=== PATIENT | female | born 1985 | race Caucasian/White ===

== ENCOUNTER 2016-07-16 19:23 | Emergency (ER) | payer SELFPAY ==
[2016-07-16] MEDS ORDERED: 0.9 % SODIUM CHLORIDE 1,000 ML IV ONE (19:26)
[2016-07-16 20:13] LABS: BASOPHILS % 0.5 (0.0-1.5); EOSINOPHILS % 1.2 % (0.0-6.8); LYMPHOCYTES # 3.6 # k/uL (0.6-4.0); MEAN CORPUSCULAR HEMOGLOBIN 28.7 pg (28.0-34.0); MONOCYTES # 0.5 # k/uL (0.0-0.9); MONOCYTES % 5.2 % (0.0-11.0)
[2016-07-16 20:28] LABS: eGFR (African) > 60; eGFR (Non-African) > 60
--- NOTE | 2016-07-16 20:32 | ED Physician Documentation ---
Abdominal Pain - HISTORIAN Historian: patient - HPI Stated Complaint: RLQ pain Chief Complaint: Abdominal Pain Onset: hours Duration: constant Timing: worse Context: denies: out of country travel, bad food, recent trauma Severity: moderate Quality: pain, cramping Associated Symptoms: nausea, back pain. denies: fever, chills, vomiting, coffee ground emesis, bloody emesis, diarrhea, bloody stools, loss of appetite Exacerbated by: nothing Relieved by: nothing Further Comments: yes (30 year old female patient presents with RLQ pain, patient states her pain started at 1500 and has become worse, with nausea and constipation) - ROS CONST: recent illness (hypothyroid, saw PCP last week) GI/: constipation CVS/RESP: none EYES/ENT: none MS/SKIN/LYMPH: none NEURO/PSYCH: headache. denies: dizziness, light-headedness - SOCIAL HX Smoking History: non-smoker - FAMILY HX Family History: denies: none - PAST HX Past History: none Ischemic Bowel Risk Factors: none Other History: diabetes Type 2, other (hypothyroid, PCOS) Surgeries/Procedures: cholecystectomy, BLT, other (Exploratory lap) Home Medications: Ambulatory Orders Medication Instructions Recorded Omeprazole 20 mg PO HS #30 capsule. 07/16/16 Promethazine HCl [Phenergan] 12.5 mg PO Q6H PRN #30 tablet 07/16/16 Allergies/Adverse Reactions: Allergies Allergy/AdvReac Type Severity Reaction Status Date / Time levothyroxine sodium Allergy Verified 07/16/16 20:03 - VITAL SIGNS Vital Signs: Vital Signs Temp Pulse Resp BP Pulse Ox 99.8 F H 87 16 113/78 98 07/16/16 20:00 07/16/16 20:00 07/16/16 20:00 07/16/16 20:00 07/16/16 20:00 - REVIEWED ASSESSMENTS Nursing Assessment Reviewed: Yes Vitals Reviewed: Yes Progress - Progress Progress: Extended wait time due to critical patient in Er. Patient medicated with zofran and NS while in Er, toradol given for pain. Reviewed lab and CT results with patient. Reviewed discharge instructions. No prescription insurance. Coupon for omeprazole provided. Education on bland diet. ED Results Lab/Radiology - Lab Results Lab Results: Lab Results 07/16/16 07/16/16 20:08 20:08 WBC 9.40 K/ul K/ul (4.00-12.00) RBC 4.86 M/ul M/ul (3.90-5.20) Hgb 13.9 g/dL g/dL (12.0-16.0) Hct 41.7 % % (34.5-46.5) MCV 85.8 fl fl (80.0-100.0) MCH 28.7 pg pg (28.0-34.0) MCHC 33.4 g/dL g/dL (30.0-36.0) RDW 13.7 % % (11.3-14.3) Plt Count 272 K/mm3 K/mm3 (130-400) Neut % (Auto) 53.3 % % (39.0-79.0) Lymph % (Auto) 38.1 % % (16.0-50.0) [place] % (Auto) 5.2 % % (0.0-11.0) Eos % (Auto) 1.2 % % (0.0-6.8) Baso % (Auto) 0.5 (0.0-1.5) Neut # 5.0 # k/uL # k/uL (1.4-7.7) Lymph # 3.6 # k/uL # k/uL (0.6-4.0) [place] # 0.5 # k/uL # k/uL (0.0-0.9) Eos # 0.1 # k/uL # k/uL (0.0-0.6) Baso # 0.0 # k/uL # k/uL (0.0-0.5) Reactive Lymphs % 1.6 % % (0.0-5.0) Reactive Lymphs # 0.2 # k/uL # k/uL (0.0-0.8) Sodium 140 mmol/L mmol/L (136-145) Potassium 3.2 mmol/L L mmol/L (3.5-5.0) Chloride 103 mmol/L mmol/L (98-110) Carbon Dioxide 29 mmol/L mmol/L (20-32) BUN 9 mg/dL L mg/dL (10-26) Creatinine 0.5 mg/dL mg/dL (0.4-1.5) Estimated Creat Clear 299 Est GFR ( Amer) > 60 (60 - ) Est GFR (Non-Af Amer) > 60 (60 - ) Glucose 108 mg/dL H mg/dL (70-99) Calcium 10.4 mg/dL mg/dL (8.5-10.5) Total Bilirubin 0.3 mg/dL mg/dL (0.2-1.2) AST 27 U/L U/L (0-41) ALT 38 U/L U/L (0-45) Alkaline Phosphatase 92 U/L U/L (46-116) Total Protein 7.6 g/dL g/dL (6.0-8.5) Albumin 5.2 g/dL g/dL (3.0-5.5) - Radiology Radiology Impressions: CT abdomen and pelvis with intravenous contrast History: Right lower quadrant pain Technique: Images through the abdomen and pelvis were obtained following intravenous contrast administration. Findings: The lung bases are clear. The patient is status post cholecystectomy. The liver, spleen, pancreas, kidneys and adrenal glands are normal. There is no hydronephrosis, hydroureter, free intraperitoneal air, fluid or adenopathy. There is no bowel obstruction. The appendix is normal. The uterus is grossly normal. The aorta enhances normally. Since 30 March 2016, right ovarian cyst is no longer present. Impression: Normal. Electronically signed on Jul 16, 2016 9:45:36 PM CDT by: Marino Desouza - Orders Orders: ED Orders Category Date Time Status Place Saline Lock/IV NOW Care 07/16/16 19:[address] ABD & PELVIS W/ CON Stat Exams 07/16/16 Completed CBC/PLATELET/DIFF Stat Lab 07/16/16 20:08 Completed CMP Stat Lab 07/16/16 20:08 Completed UA W/MICRO IF INDICATED Stat Lab 07/16/16 20:48 Ordered URINE HCG Stat Lab 07/16/16 20:40 Ordered 0.9 % Sodium Chloride [Normal Saline] 1,000 ml Med 07/16/16 19:26 Discontinued IV NOW Ketorolac Tromethamine [Toradol] Med 07/16/16 22:11 Discontinued 30 mg .ROUTE .STK-MED ONE Ketorolac Tromethamine [Toradol] Med 07/16/16 22:11 Discontinued 30 mg IVP NOW ONE Ondansetron HCl Rapdis [Zofran Odt] Med 07/16/16 21:56 Discontinued 4 mg PO NOW ONE Ondansetron HCl/Pf [Zofran 4 mg/2 ml] Med 07/16/16 20:57 Discontinued 4 mg IVP NOW ONE Abdominal Pain Physical Exam - Physical Exam General Appearance: mild distress EENT: eye inspection normal, FELY RESPIRATORY: no resp distress, chest non-tender, breath sounds normal CVS: reg rate & rhythm, heart sounds normal, equal pulses, no murmur, no gallop , PMI nml, no JVD, no friction rub, 24 ABDOMEN: soft, no organomegaly, normal bowel sounds, no abdominal bruit, no distension SKIN: normal color, warm/dry, NR, INT, PAL, DR EXTREMITIES: non-tender, normal range of motion, no evidence of injury, no edema , J, CLINICAL DOCUMENTATION SPEC NEURO: oriented X3, CN's nml as tested, motor nml, sensation nml Vital Signs: Vital Signs Temp Pulse Resp BP Pulse Ox 99.8 F H 87 16 113/78 98 07/16/16 20:00 07/16/16 20:00 07/16/16 20:00 07/16/16 20:00 07/16/16 20:00 Discharge Clincal Impression: Nausea Abdominal pain Qualifiers: Abdominal location: generalized Qualified Code(s): R10.84 - Generalized abdominal pain Prescriptions: Omeprazole 20 mg PO HS #30 capsule.dr Chavezethazine HCl [Phenergan] 12.5 mg PO Q6H PRN #30 tablet PRN Reason: Nausea / Vomiting Referrals: Demetria Gongora MD [Primary Care Provider] - 2 Days Additional Instructions: [place] diet - no spicy, fried or high fatty foods. Zofran prescription was sent to the pharmacy and can be used as needed Omeprazole prescription was sent to the pharmacy, start it before bed Follow up next week with Dr Gongora Home Medications: Ambulatory Orders Omeprazole 20 mg PO HS #30 capsule. 07/16/16 Promethazine HCl [Phenergan] 12.5 mg PO Q6H PRN #30 tablet 07/16/16 Condition: Stable Disposition: 01 HOME, SELF-CARE Decision to Admit: NO Decision Time: 21:52
[2016-07-16] MEDS ORDERED: ONDANSETRON HCL/PF 4 MG/ 2ML VIAL IVP ONE (20:57)
[2016-07-16] MEDS ORDERED: ONDANSETRON HCL 4 MG TAB.RAPDIS PO ONE (21:56)
[2016-07-16] MEDS ORDERED: KETOROLAC TROMETHAMINE 30 MG/1ML VIAL IVP ONE (22:11)
[2016-07-16] MEDS ORDERED: KETOROLAC TROMETHAMINE 30 MG/1ML VIAL ONE (22:11)
--- NOTE | 2016-07-16 22:42 | Diagnostic Imaging Report ---
INDU CHAMPAGNE (TIMOTHY) - ER~ [facility] [address] [facility] [address] [place] [address]. [id number] ~ ~ ~ ~ Report Submission Date: Jul 16, 2016 9:45:36 PM CDT Patient ~ Study Name: RONEN MUNOZ ~ Date: Jul 16, 2016 9:16:14 PM CDT ~ Modality Type: CT\SR Gender: F ~ Description: CT ABD & PELVIS W/ CON : 81 ~ Institution: [facility] Physician: INDU CHAMPAGNE) - ER ~ ~ ~ ~ CT abdomen and pelvis with intravenous contrast History: Right lower quadrant pain Technique: Images through the abdomen and pelvis were obtained following intravenous contrast administration. Findings: The lung bases are clear. The patient is status post cholecystectomy. The liver, spleen, pancreas, kidneys and adrenal glands are normal. There is no hydronephrosis, hydroureter, free intraperitoneal air, fluid or adenopathy. There is no bowel obstruction. The appendix is normal. The uterus is grossly normal. The aorta enhances normally. Since 30 March 2016, right ovarian cyst is no longer present. Impression: Normal. ~ Electronically signed on Jul 16, 2016 9:45:36 PM CDT by: Marino RON
[2016-07-17 02:23] VITALS: BP 117/68
[2016-07-17 05:47] LABS: APPEARANCE,URINE CLEAR (CLEAR); COLOR,URINE YELLOW (YELLOW); OCCULT BLOOD,URINE NEGATIVE (NEGATIVE); PH URINE 5.5 (5.0 - 8.0); UROBILINOGEN URINE 0.2 Eu (0.2-1.0)
== END 2016-07-16 22:14 | disposition home or self-care (01) ==
LOC: ED 19:23
DX: R10.84 Generalized abdominal pain (principal); R11.2 Nausea with vomiting, unspecified
CPT/HCPCS: 74177; 80053; 81002; 81025; 85025; 96361; 96374; 96375; 99283; 99284; J1885; J2405; J7030; Q9966; S1016

== ENCOUNTER 2016-09-28 20:52 | Emergency (ER) | payer SELFPAY ==
[2016-09-28] MEDS ORDERED: TRIAMCINOLONE CREAM 0.1% 15GM TUBE TP ONE (21:15)
--- NOTE | 2016-09-28 21:21 | ED Physician Documentation ---
Skin Rash - HISTORIAN Historian: patient - HPI Stated Complaint: Rash to Left Hip Chief Complaint: Skin Rash Additional Information: Pt is a 30 yo female that presents with left hip rash onset last night. Pt states she went hiking yesterday with her son and began to notice the area itching last night when she went to bed. She awoke this AM with increased itching and pain to the area and a slight macular, non-pruritic rash on her upper extremities. She denies fever/chills and N/V. Denies having an tick bites but she thinks she was bit by something. Denies difficulty breathing. Onset: hours Timing: still present Duration: persistent since Location: trunk Quality: itchy, painful - ROS CONST: none. denies: fever, chills CVS/RESP: denies: none, shortness of breath EYES/ENT: none GI/: none MS/SKIN/LYMPH: rash NEURO/PSYCH: none - PAST HX Past History: other (hyperthyroidism) Other History: none Allergies/Adverse Reactions: Allergies Allergy/AdvReac Type Severity Reaction Status Date / Time levothyroxine sodium Allergy Verified 09/28/16 21:07 - SOCIAL HX Smoking History: non-smoker - FAMILY HX Family History: none - VITAL SIGNS Vital Signs: Vital Signs Temp Pulse Resp BP Pulse Ox 97.9 F 96 H 18 138/84 96 09/28/16 20:55 09/28/16 20:55 09/28/16 20:55 09/28/16 20:55 09/28/16 20:55 - REVIEWED ASSESSMENTS Nursing Assessment Reviewed: Yes Vitals Reviewed: Yes Progress - Progress Progress: Pt does not appear toxic. The area of concern does not appear infected at this time, just looks like a local inflammatory reaction. I will rx the patient steroid cream. We discussed that should her symptoms worsen over the next 24-48 hours that she should contact Dr. Gongora's office and an antibiotic would be indicated at that time. She voices understanding and is agreeable. Skin Rash Physical Exam - EXAM General Appearance: no acute distress Skin: warm,dry, other (to left ASIS region. Area is TTP. No induration or fluctuance noted. Area of erythema is roughly 6 cm in diameter. No drainage noted. There is a fine macular rash to bilateral upper arms.) Character: asymmetric, macular Symptoms: tenderness. No: induration, weeping Extremities: non-tender, nml ROM EENT: eyes nml inspection Neck: trachea midline, no swelling Respiratory: no resp distress, breath sounds normal CVS: reg. rate & rhythm, heart sounds nml Abdomen: non-tender Neuro/Psych: oriented x3 Discharge Clincal Impression: Insect bite Qualifiers: Encounter type: initial encounter Qualified Code(s): W57.XXXA - Bitten or stung by nonvenomous insect and other nonvenomous arthropods, initial encounter Referrals: Demetria Gongora MD [Primary Care Provider] - 2 Days Additional Instructions: Use steroid cream as directed. Contact Dr. Gongora's office if your rash worsens in the next 24-48hrs. Alternate Tylenol and Ibuprofen as needed for pain. Return to the ED should your symptoms worsen or not improve. Condition: Good Disposition: 01 HOME, SELF-CARE Decision to Admit: NO Decision Time: 21:20
[2016-09-28] MEDS ORDERED: TRIAMCINOLONE ACETONIDE 0.1% 80GM TUBE TP PRN (21:23)
[2016-09-28 21:26] VITALS: BP 121/76
== END 2016-09-28 21:25 | disposition home or self-care (01) ==
LOC: ED 20:52
DX: S70.262A Insect bite (nonvenomous), left hip, initial encounter (principal); W57.XXXA Bitten or stung by nonvenomous insect and other nonvenomous arthropods, initial encounter; Y93.9 Activity, unspecified; Y99.9 Unspecified external cause status
CPT/HCPCS: 99282; 99283

== ENCOUNTER 2016-11-19 09:32 | Outpatient (CLI) | payer SELFPAY | END 2016-11-19 09:33 | LOC: LAB 09:32 | PROVIDERS: ATTEND Family Medicine | DX: E03.9 Hypothyroidism, unspecified (principal) | CPT/HCPCS: 36415; 84443 ==

== ENCOUNTER 2017-08-08 10:11 | Outpatient (CLI) | payer OTHER | END 2017-08-08 10:12 | LOC: LAB 10:11 | PROVIDERS: ATTEND Family Medicine | DX: E03.9 Hypothyroidism, unspecified (principal); E28.2 Polycystic ovarian syndrome | CPT/HCPCS: 36415; 83036; 84443 ==

== ENCOUNTER 2017-08-29 17:55 | Emergency (ER) | payer OTHER ==
[2017-08-29] MEDS ORDERED: ONDANSETRON HCL/PF 4 MG/ 2ML VIAL IVP ONE (18:33)
[2017-08-29] MEDS ORDERED: 0.9 % SODIUM CHLORIDE 1,000 ML IV ONE (18:46)
--- NOTE | 2017-08-29 18:51 | ED Physician Documentation ---
Abdominal Pain - HISTORIAN Historian: patient - HPI Stated Complaint: abd pain Chief Complaint: Abdominal Pain Onset: hours Context: denies: out of country travel Quality: pain, cramping Associated Symptoms: nausea. denies: fever, vomiting, bloody stools - ROS CONST: no problems - SOCIAL HX Smoking History: non-smoker - FAMILY HX Family History: no significant history - PAST HX Past History: other (PCOS, hypothyroid, had NIDDM, but lost 60 pounds; last A1C 5.7.) Surgeries/Procedures: cholecystectomy, other (above) - REVIEWED ASSESSMENTS Nursing Assessment Reviewed: Yes Vitals Reviewed: Yes <OMID BEYER - Last Filed: 08/29/17 19:05> <Morales Oh - Last Filed: 08/31/17 13:09> - HPI Additonal Information: Nausea began this am and continues. Abdomen uncomfortable since this am and had become increasingly bloated. Had three bowel movements today which is atypical for her. They did not influence her pain which is now L>R. They were typical consistency for her. The second bowel movement is said to have been "dark, almost black." She has not otherwise felt the urge to pass gas nor has she belched. Feels like pains she had with gall bladder but on the left. She has not vomited or had fever. No meds or other treatment attempted. Walking sometimes helps and sometimes makes it worse. LNMP 10 days ago. No HX [place]. DX'ed with PCOS 3 years ago and had lap exploratory; symptoms have improved since. (OMID BEYER) - PAST HX Allergies/Adverse Reactions: Allergies Allergy/AdvReac Type Severity Reaction Status Date / Time levothyroxine sodium Allergy Verified 08/29/17 18:22 - VITAL SIGNS Vital Signs: Vital Signs Temp Pulse Resp BP Pulse Ox 98.1 F 79 16 132/67 98 08/29/17 20:32 08/29/17 20:32 08/29/17 20:32 08/29/17 20:32 08/29/17 20:32 Progress <OMID BEYER - Last Filed: 08/29/17 19:05> <Morales Oh - Last Filed: 08/31/17 13:09> - Progress Progress: 1904, care to Dr. Oh. (OMID BEYER) X-ray abdomen: Examination of the abdomen in supine and upright views demonstrates gas and stool in the colon. There is no obstruction or free air. Surgical clips are seen in the right upper quadrant from prior cholecystectomy. Psoas margins are well defined. There no unusual intra-abdominal calcifications. Impression: 1. Postoperative abdomen. 2. Otherwise negative study. Magnesiums Citrate: drink 1/2 bottle; if no bm after 6 hrs repeat. If sx unimproved f/u pcp or district wire chief re: PCOS. (Morales Oh) - Lab Results Lab Results: Lab Results 08/29/17 08/29/17 08/29/17 18:43 18:43 18:08 WBC 8.40 K/ul K/ul (4.00-12.00) RBC 5.18 M/ul M/ul (3.90-5.20) Hgb 14.8 g/dL g/dL (12.0-16.0) Hct 44.5 % % (34.5-46.5) MCV 85.9 fl fl (80.0-100.0) MCH 28.6 pg pg (28.0-34.0) MCHC 33.3 g/dL g/dL (30.0-36.0) RDW 13.3 % % (11.3-14.3) Plt Count 305 K/mm3 K/mm3 (130-400) Neut % (Auto) 46.5 % % (39.0-79.0) Lymph % (Auto) 44.1 % % (16.0-50.0) [place] % (Auto) 4.5 % % (0.0-11.0) Eos % (Auto) 1.8 % % (0.0-6.8) Baso % (Auto) 0.8 (0.0-1.5) Neut # (Auto) 3.9 # k/uL # k/uL (1.4-7.7) Lymph # (Auto) 3.7 # k/uL # k/uL (0.6-4.0) [place] # (Auto) 0.4 # k/uL # k/uL (0.0-0.9) Eos # (Auto) 0.2 # k/uL # k/uL (0.0-0.6) Baso # (Auto) 0.1 # k/uL # k/uL (0.0-0.5) Reactive Lymphs % 2.3 % % (0.0-5.0) Reactive Lymphs # 0.2 # k/uL # k/uL (0.0-0.8) Sodium 140 mmol/L mmol/L (136-145) Potassium 3.7 mmol/L mmol/L (3.5-5.1) Chloride 100 mmol/L mmol/L (98-107) Total Carbon Dioxide 25 mmol/L mmol/L (22-29) BUN 8 mg/dL mg/dL (6-20) Creatinine 0.50 mg/dL mg/dL (0.40-1.50) Estimated GFR mL/min >114 Glucose 101 mg/dL H mg/dL (70-99 Fasting) Calcium 10.4 mg/dL H mg/dL (8.6-10.2) Total Bilirubin <0.3 mg/dL mg/dL (<1.2) AST 15 U/L U/L (<32) ALT 15 U/L U/L (<34) Alkaline Phosphatase 87 U/L U/L (40-129) Total Protein 7.6 g/dL g/dL (6.0-8.5) Albumin 4.8 g/dL g/dL (3.5-5.2) Lipase 52 U/L U/L (13-60) Urine Color Yellow (YELLOW) Urine Appearance Clear (CLEAR) Urine pH 6.5 (5.0 - 8.0) Ur Specific [place] 1.010 (1.010-1.030) Urine Protein Negative mg/dL mg/dL (NEGATIVE) Urine Ketones Negative mg/dL mg/dL (NEGATIVE) Urine Occult Blood Negative (NEGATIVE) Urine Nitrite Negative (NEGATIVE) Urine Bilirubin Negative (NEGATIVE) Urine Urobilinogen 0.2 Eu Eu (0.2-1.0) Ur Leukocyte Esterase Negative (NEGATIVE) Urine Glucose Negative mg/dL mg/dL (NEGATIVE) Urine HCG, Qual Negative (NEGATIVE) - Orders Orders: ED Orders Category Date Time Status Place IV Lock 1T Care 08/29/17 18:32 Active ABDOMEN WITH PA CHEST [ABD SERIES PA CHEST] [RAD] Stat Exams 08/29/17 Completed CBC/PLATELET/DIFF Routine Lab 08/29/17 18:43 Completed UA MACRO DIP ONLY Stat Lab 08/29/17 18:08 Completed URINE HCG Stat Lab 08/29/17 18:08 Completed 0.9 % Sodium Chloride [Normal Saline] 1,000 ml Med 08/29/17 18:46 Discontinued IV .STK-MED 0.9 % Sodium Chloride [Normal Saline] 1,000 ml Med 08/29/17 19:00 Discontinued IV Q10H Ketorolac Tromethamine [Toradol] Med 08/29/17 19:17 Discontinued 30 mg IVP NOW ONE Magnesium Citrate [Citrate of Magnesia] Med 08/29/17 20:19 Discontinued 296 ml PO .STK-MED ONE Magnesium Citrate [Citrate of Magnesia] Med 08/29/17 20:19 Discontinued 296 ml PO NOW ONE Ondansetron HCl/Pf [Zofran 4 mg/2 ml] Med 08/29/17 18:33 Discontinued 4 mg IVP NOW ONE Abdominal Pain Physical Exam - Physical Exam General Appearance: alert, mild distress EENT: eye inspection normal, pharynx normal NECK: normal inspection, supple RESPIRATORY: no resp distress, breath sounds normal CVS: reg rate & rhythm, heart sounds normal, no murmur ABDOMEN: soft, normal bowel sounds, tenderness (slight, diffuse), distended ( not tense). No: psoas, obturator sign BACK: normal inspection, no CVA tenderness, other (no vertebral tenderness) SKIN: warm/dry, normal color EXTREMITIES: normal range of motion (gait and stance), no evidence of injury NEURO: CN's nml as tested, motor nml, sensation nml, cognition normal <OMID BEYER - Last Filed: 08/29/17 19:05> - Physical Exam Vital Signs: Vital Signs Temp Pulse Resp BP Pulse Ox 98.1 F 79 16 132/67 98 08/29/17 20:32 08/29/17 20:32 08/29/17 20:32 08/29/17 20:32 08/29/17 20:32 Discharge <OMID BEYER - Last Filed: 08/29/17 19:05> Decision to Admit: NO Decision Time: 20:18 <Morales Oh - Last Filed: 08/31/17 13:09> Clincal Impression: abdominal pain Referrals: Demetria Gongora MD [Primary Care Provider] - Condition: Stable Disposition: HOME, SELF-CARE
[2017-08-29 18:56] LABS: BASOPHILS % 0.8 (0.0-1.5); EOSINOPHILS % 1.8 % (0.0-6.8); MEAN CORPUSCULAR HEMOGLOBIN 28.6 pg (28.0-34.0); MEAN CORPUSCULAR VOLUME 85.9 fl (80.0-100.0); MONOCYTES % 4.5 % (0.0-11.0); NEUTROPHILS # 3.9 # k/uL (1.4-7.7)
[2017-08-29] MEDS ORDERED: 0.9 % SODIUM CHLORIDE 1,000 ML IV SCH (19:00)
[2017-08-29] MEDS ORDERED: KETOROLAC TROMETHAMINE 30 MG/1ML VIAL IVP ONE (19:17)
[2017-08-29] MEDS ORDERED: MAGNESIUM CITRATE 296 ML BOTTLE PO ONE ×2 (20:19)
[2017-08-29 20:21] LABS: LIPASE 52 U/L (13-60); TOTAL PROTEIN 7.6 g/dL (6.0-8.5)
[2017-08-29 20:34] VITALS: BP 132/67
--- NOTE | 2017-08-30 06:33 | Diagnostic Imaging Report ---
OMID BEYER [facility] [address] [facility] [address] [place] [address]. [id number] Report Submission Date: August 29, 2017 7:36:19 PM CDT Patient Study Name: RONEN SHAIKH Date: August 29, 2017 7:02:00 PM CDT Modality Type: DX Gender: F Description: ABDOMEN : 81 Institution: [facility] Physician: OMID BEYER Obstructive series with chest x-ray Clinical history: PAIN; BLOATING TODAY Findings: Examination of the chest in single upright view demonstrates the lungs to be clear. Cardiovascular and mediastinal silhouettes are within normal limits. Examination of the abdomen in supine and upright views demonstrates gas and stool in the colon. There is no obstruction or free air. Surgical clips are seen in the right upper quadrant from prior cholecystectomy. Psoas margins are well defined. There no unusual intra-abdominal calcifications. Impression: 1. Postoperative abdomen. 2. Otherwise negative study. Electronically signed on August 29, 2017 7:36:19 PM CDT by: Rohit RON
[2017-08-31 08:55] LABS: APPEARANCE,URINE CLEAR (CLEAR); COLOR,URINE YELLOW (YELLOW); OCCULT BLOOD,URINE NEGATIVE (NEGATIVE); PH URINE 6.5 (5.0 - 8.0); URINE HCG NEGATIVE (NEGATIVE); UROBILINOGEN URINE 0.2 Eu (0.2-1.0)
== END 2017-08-29 20:32 | disposition home or self-care (01) ==
LOC: ED 17:55
DX: R10.9 Unspecified abdominal pain (principal)
CPT/HCPCS: 74022; 80053; 83690; 85025; J1885; J2405; J7030; 81002; 81025; 96360; 96361; 96374; 96375; S1016

== ENCOUNTER 2017-09-30 13:07 | Emergency (ER) | payer OTHER ==
--- NOTE | 2017-09-30 13:45 | ED Physician Documentation ---
Upper Extremity Problem - HISTORIAN Historian: patient, parent (mom) - HPI Stated Complaint: arm Chief Complaint: Upper Extremity Problem Additional Information: Right carpal tunnel repair and ganglion cyst removal on 09/28, per Dr. Alexandra at [facility]. Today she noticed red area proximal to dressing and is concerned about infection or blood clot. Says she has kept arm elevated since surgery. Fingers tingling today. - ROS CONST: no problems (temp 991 in ER) - PAST HX Past History: other (hypothyroid) Allergies/Adverse Reactions: Allergies Allergy/AdvReac Type Severity Reaction Status Date / Time levothyroxine sodium Allergy Verified 08/29/17 18:22 - SOCIAL HX Smoking History: non-smoker - FAMILY HX Family History: no significant history - VITAL SIGNS Vital Signs: Vital Signs Temp Pulse Resp BP Pulse Ox 132/67 08/29/17 20:32 - REVIEWED ASSESSMENTS Nursing Assessment Reviewed: Yes Vitals Reviewed: Yes Progress - Progress Progress: Rocephinn in ER and home with script for Keflex. ED Results Lab/Radiology - Lab Results Lab Results: Lab Results 09/30/17 13:40 WBC 11.00 K/ul K/ul (4.00-12.00) RBC 4.91 M/ul M/ul (3.90-5.20) Hgb 13.9 g/dL g/dL (12.0-16.0) Hct 43.0 % % (34.5-46.5) MCV 87.7 fl fl (80.0-100.0) MCH 28.4 pg pg (28.0-34.0) MCHC 32.4 g/dL g/dL (30.0-36.0) RDW 13.4 % % (11.3-14.3) Plt Count 259 K/mm3 K/mm3 (130-400) Neut % (Auto) 53.6 % % (39.0-79.0) Lymph % (Auto) 36.2 % % (16.0-50.0) [place] % (Auto) 5.7 % % (0.0-11.0) Eos % (Auto) 1.9 % % (0.0-6.8) Baso % (Auto) 0.6 (0.0-1.5) Neut # (Auto) 5.9 # k/uL # k/uL (1.4-7.7) Lymph # (Auto) 4.0 # k/uL # k/uL (0.6-4.0) [place] # (Auto) 0.6 # k/uL # k/uL (0.0-0.9) Eos # (Auto) 0.2 # k/uL # k/uL (0.0-0.6) Baso # (Auto) 0.1 # k/uL # k/uL (0.0-0.5) Reactive Lymphs % 1.9 % % (0.0-5.0) Reactive Lymphs # 0.2 # k/uL # k/uL (0.0-0.8) - Orders Orders: ED Orders Category Date Time Status Apply occlusive dressing D Care 09/30/17 13:[address] IV Lock 1T Care 09/30/17 13:31 Active BLOOD CULTURE Stat Lab 09/30/17 Ordered CBC/PLATELET/DIFF Routine Lab 09/30/17 13:40 Received CMP [CMP] Routine Lab 09/30/17 13:40 Received 0.9 % Sodium Chloride [Normal Saline] 500 ml Med 09/30/17 13:49 Active IV NOW cefTRIAXone SODIUM [Rocephin] Med 09/30/17 13:49 Discontinued 1 gm .ROUTE .STK-MED ONE cefTRIAXone SODIUM [Rocephin] 1 gm Med 09/30/17 13:38 Active 0.9 % Sodium Chloride [Sodium Chloride] 50 ml IV NOW Upper Extremity Problem - EXAM General Appearance: no acute distress, alert Skin: warm/dry, normal color (except right forear, with area of erythema oval shaped, 3x8 cm distal 1/3 ventral right forearm. 2-3 mm elevation, slight warmth , some firmness. no fluctuanceSingle layer gauze not removed from two incisions at wrist level. No drainage or erythema there. ) Shoulder Exam: normal inspection, no evidence of injury Elbow/Forearm Exam: normal inspection, no evidence of injury Wrist Exam: normal ROM (slow, 2/2 discomfort. R radial pulse 2+) Hand Exam: normal inspection, no evidence of injury, normal ROM Neuro/Tendon: normal sensation, normal motor functions, normal tendon functions EENT: eye inspection normal, ENT inspection normal CVS: reg rate & rhythm, heart sounds normal Peripheral: sensation nml, motor nml Central: oriented X3, CN's nml as tested, motor nml, sensation nml Respiratory: no resp. distress, breath sounds nml Discharge Clincal Impression: Cellulitis Qualifiers: Site of cellulitis: extremity Site of cellulitis of extremity: upper extremity Laterality: right Qualified Code(s): L03.113 - Cellulitis of right upper limb Referrals: Demetria Gongora MD [Primary Care Provider] - 2 Days Additional Instructions: Return to the ER or see your surgeon if the redness on your arm doubles in size in 12 hours or you are not getting better in 48 hours. Keep the arm elevated. Condition: Fair Disposition: 01 HOME, SELF-CARE Decision to Admit: NO Decision Time: 13:55
[2017-09-30 13:48] LABS: BASOPHILS % 0.6 (0.0-1.5); EOSINOPHILS % 1.9 % (0.0-6.8); MEAN CORPUSCULAR HEMOGLOBIN 28.4 pg (28.0-34.0); MEAN CORPUSCULAR VOLUME 87.7 fl (80.0-100.0); MONOCYTES % 5.7 % (0.0-11.0); NEUTROPHILS # 5.9 # k/uL (1.4-7.7)
[2017-09-30] MEDS: cefTRIAXone SODIUM 1 GM VIAL ONE (13:59)
[2017-09-30] MEDS: 0.9 % SODIUM CHLORIDE 500 ML IV ONE (13:59)
[2017-09-30] MEDS: cefTRIAXone SODIUM 1 GM in 0.9 % SODIUM CHLORIDE 50 ML IV ONE (13:59)
[2017-09-30 14:00] LABS: eGFR (Non-African) > 60
[2017-09-30 14:35] VITALS: BP 118/70
== END 2017-09-30 14:33 | disposition home or self-care (01) ==
LOC: ED 13:07
DX: L03.113 Cellulitis of right upper limb (principal)
CPT/HCPCS: 80053; 85025; 87040; J0696; J7060; 96365; 96368; S1016